=== PATIENT | male | born 1965 | race Two or more races ===

== ENCOUNTER 2022-12-08 22:44 | Emergency (ER) | payer OTHER ==
[~2022-12-08] VITALS: Ht 165.1 cm; Wt 72.6 kg
[2022-12-08 23:01] VITALS: TEMP 98
[2022-12-08] MEDS ORDERED: methylPREDNISolone SOD SUCC 125 MG/2ML VIAL ONE (23:16)
[2022-12-08] MEDS ORDERED: FAMOTIDINE/PF INJ 20 MG/2 ML VIAL IV ONE ×2 (23:16→23:30)
[2022-12-08] MEDS ORDERED: IV NS 0.9% 1,000 ML BAG IV ONE (23:30)
[2022-12-08] MEDS ORDERED: methylPREDNISolone SOD SUCC 125 MG/2ML VIAL IV ONE (23:30)
[2022-12-09 02:08] VITALS: BP 118/64; O2SAT 98
== END 2022-12-09 02:09 | disposition home or self-care (01) ==
LOC: ER 23:05
DX: T78.3XXA Angioneurotic edema, initial encounter (principal); T78.1XXA Other adverse food reactions, not elsewhere classified, initial encounter; I10 Essential (primary) hypertension; Z91.013 Allergy to seafood; X58.XXXA Exposure to other specified factors, initial encounter
CPT/HCPCS: 99284; 96374; 96375; 93005; J3490; J2930; J7030